=== PATIENT | male | born 1995 | race Caucasian/White ===

== ENCOUNTER 2019-04-12 20:06 | Emergency (ER) | payer OTHER ==
[2019-04-12 21:02] VITALS: BP 145/84
[2019-04-12] MEDS ORDERED: Ibuprofen ADULT LIQ* 600 MG/30 ML UDC PO ONE (21:34)
--- NOTE | 2019-04-12 21:43 | UC ---
UC General HPI - HPI Summary HPI Summary: PT JUMPED FROM THE BACK OF HIS BOX TRUCK AND INJURED THE OUTSIDE OF HIS R FOOT. OCCURRED ABOUT 4 HOURS BUSINESS SUPERVISOR. - History of Current Complaint Chief Complaint: UCLowerExtremity Stated Complaint: WC-RT FOOT INJ Time Seen by Provider: 04/12/19 21:19 Hx Obtained From: Patient Onset/Duration: Sudden Onset Timing: Constant Pain Intensity: 3 Aggravating: MOVEMENT Associated Signs & Symptoms: Negative: Fever - Allergy/Home Medications Allergies/Adverse Reactions: Allergies Allergy/AdvReac Type Severity Reaction Status Date / Time No Known Allergies Allergy Verified 04/12/19 21:02 Home Medications: Home Medications NK [No Home Medications Reported] 04/12/19 [History Confirmed 04/12/19] PMH/Surg Hx/FS Hx/Imm Hx Previously Healthy: Yes - Surgical History Surgical History: Yes Surgery Procedure, Year, and Place: appendectomy - Family History Known Family History: Positive: Non-Contributory - Social History Occupation: Employed Full-time Alcohol Use: Occasionally Substance Use Type: None Smoking Status (MU): Never Smoked Tobacco Length of Time of Smoking/Using Tobacco: since 16 years Review of Systems All Other Systems Reviewed And Are Negative: No Constitutional: Negative: Fever Skin: Negative: Rash Musculoskeletal: Negative: Edema Physical Exam Triage Information Reviewed: Yes Appearance: Well-Appearing Vital Signs: Initial Vital Signs Temp 99.0 F 04/12/19 20:55 Pulse 74 04/12/19 20:55 Resp 18 04/12/19 20:55 BP 145/84 04/12/19 20:55 Pulse Ox 97 04/12/19 20:55 Vital Signs Reviewed: Yes Eyes: Positive: Conjunctiva Clear Cardiovascular: Positive: RRR Musculoskeletal: Positive: Other: - RLE= hip, knee, achilles and ankle are non tender. Foot is without gross bony deformity but is tender with mild swelling along the lateral aspect. gross s/v/m function is intact. Neurological: Positive: Alert Psychological: Positive: Age Appropriate Behavior Skin Exam: Normal Diagnostics - Radiology No standard instances Radiology Interpretation Completed By: ED Physician - r foot=nad Course/Dx - Course Course Of Treatment: NO HX HTN, BP VISIT RELATED. - Differential Dx - Multi-Symptom Differential Diagnoses: Other - no concern for infection or dislocation. no fx seen on xray - Diagnoses Provider Diagnosis: Right foot sprain Discharge - Sign-Out/Discharge Documenting (check all that apply): Patient Departure All imaging exams completed and their final reports reviewed: No - Discharge Plan Condition: Stable Disposition: HOME Patient Education Materials: Foot Sprain (ED) Referrals: [facility] [Provider Group] - 5 Days Additional Instructions: ALEX AND POST OP SHOE UNTIL CLEARED. - Billing Disposition and Condition Condition: STABLE Disposition: Home
--- NOTE | 2019-04-13 09:56 | UC ---
- EKG/XRAY/CT Xray Comments: wet read correct Course/Dx - Diagnoses Provider Diagnoses: Right foot sprain Discharge - Sign-Out/Discharge Documenting (check all that apply): Post-Discharge Follow Up All imaging exams completed and their final reports reviewed: Yes - Discharge Plan Condition: Stable Disposition: HOME Patient Education Materials: Foot Sprain (ED) Forms: *Work Release Referrals: [facility] [Provider Group] - 5 Days Additional Instructions: ALEX AND POST OP SHOE UNTIL CLEARED. - Billing Disposition and Condition Condition: STABLE Disposition: Home
== END 2019-04-12 22:10 | disposition home or self-care (01) ==
LOC: UCCORT 20:06
DX: S93.601A Unspecified sprain of right foot, initial encounter (principal); Y93.39 Activity, other involving climbing, rappelling and jumping off; Y92.9 Unspecified place or not applicable
CPT/HCPCS: 99203; A9270-GY; G0463